=== PATIENT | female | born 1975 | race Caucasian/White ===

== ENCOUNTER 2016-10-07 12:21 | Inpatient (IN) | payer OTHER ==
[~2016-10-07] VITALS: Ht 172.7 cm; Wt 57.8 kg
[2016-10-07] VITALS (440 sets, daily range): BP systolic 108–131; BP diastolic 58–78; PULSE 83–114; TEMP 98.9–99.8; O2SAT 93–100
[2016-10-07 12:59] LABS: ARTERIAL BLD GAS O2 SATURATION 96.7 % (92-100); ARTERIAL BLD GAS TCO2 CT 6.2; ARTERIAL BLOOD GAS BASE EXCESS -20.8 (-2-2); ARTERIAL BLOOD GAS HCO3 5.7 meq/L (22-26); OXYHEMOGLOBIN 95.7 %
[2016-10-07 13:01] LABS: ALLEN TEST YES; ALLENS TEST RESULT PASS; ARTERIAL BLOOD GAS PHT 7.15 C (7.35-7.45); ARTERIAL BLOOD GAS pH 7.15 (7.35-7.45); ATS? YES
[2016-10-07 13:40] LABS: CALCIUM 7.7 mg/dL (8.4-10.2); CREATININE, serum 0.68 mg/dL (0.52-1.25); POTASSIUM 4.3 mmol/L (3.4-5.0)
[2016-10-07] MEDS ORDERED: MASON NATURAL2000 IU PO (13:50)
[2016-10-07] MEDS ORDERED: SINGULAIR 110 MG/TAB PO (13:51)
[2016-10-07 13:53] LABS: PHOSPHOROUS 1.9 mg/dL (2.5-4.5)
[2016-10-07] MEDS ORDERED: ASPIRIN 81M81 MG/TA2 PO (13:53)
[2016-10-07] MEDS ORDERED: ZYRTEC 10MG10 MG PO (13:53)
[2016-10-07] MEDS ORDERED: NOVLOG SQ (13:54)
[2016-10-07] MEDS ORDERED: VITAMIN D31000 I1 PO (13:55)
[2016-10-07 20:27] LABS: CREATININE, serum 0.56 mg/dL (0.52-1.25); POTASSIUM 3.7 mmol/L (3.4-5.0)
[2016-10-08] VITALS (421 sets, daily range): BP systolic 96–127; BP diastolic 50–72; PULSE 81–103; TEMP 97.9–98.5; O2SAT 96–100
[2016-10-08 06:00] LABS: BASO # 0.1 (0.0-0.2); BASO % 0.6 % (0.0-2.0); EOS # 0.1 (0.0-0.7); EOS % 0.3 % (0-4.0); GRAN # 18.5 (1.4-6.5); GRAN % 84.8 % (42.2-75.2); HEMATOCRIT 38.3 % (37.0-47.0); HEMOGLOBIN 13.9 g/dl (12.5-16.0); LYMPH # 1.6 (1.2-3.4); LYMPH % 7.3 % (20.0-51.0); MEAN CELL VOLUME 93 fl (80.0-100.0); MEAN CORPUSCULAR HEMOGLOBIN 34 pg (27.0-31.0); MEAN CORPUSCULAR HGB CONC 36 g/dl (33.0-37.0); MEAN PLATELET VOLUME 10.2 fl (7.4-10.4); MONO # 1.2 (0.1-0.6); MONO % 5.6 % (1.7-9.3); PLATELET COUNT 181 K/mm3 (130-400); RED BLOOD COUNT 4.14 M/mm3 (4.10-5.30); REDCELL DISTRIBUTION WIDTH-CV 13.1 % (11.5-14.5)
[2016-10-08 06:03] LABS: WHITE BLOOD COUNT 21.8 K/mm3 (4.8-10.8)
[2016-10-08 06:08] LABS: CALCIUM 7.5 mg/dL (8.4-10.2); CREATININE, serum 0.48 mg/dL (0.52-1.25); POTASSIUM 3.3 mmol/L (3.4-5.0)
[2016-10-08 14:14] LABS: CALCIUM 7.2 mg/dL (8.4-10.2); CREATININE, serum 0.47 mg/dL (0.52-1.25); POTASSIUM 3.7 mmol/L (3.4-5.0)
[2016-10-09 00:01] VITALS: BP 108/57; PULSE 65; TEMP 98.2
[2016-10-09 03:03] VITALS: BP 106/62; PULSE 74; TEMP 97.8
[2016-10-09 06:54] LABS: BASO % 0.7 % (0.0-2.0); EOS # 0.1 (0.0-0.7); EOS % 1.9 % (0-4.0); GRAN # 4.1 (1.4-6.5); GRAN % 70.8 % (42.2-75.2); HEMOGLOBIN 13.2 g/dl (12.5-16.0); LYMPH # 1.1 (1.2-3.4); LYMPH % 18.3 % (20.0-51.0); MEAN CELL VOLUME 92 fl (80.0-100.0); MEAN CORPUSCULAR HEMOGLOBIN 33 pg (27.0-31.0); MEAN CORPUSCULAR HGB CONC 36 g/dl (33.0-37.0); MEAN PLATELET VOLUME 10.1 fl (7.4-10.4); MONO # 0.4 (0.1-0.6); MONO % 7.6 % (1.7-9.3); PLATELET COUNT 132 K/mm3 (130-400); RED BLOOD COUNT 3.96 M/mm3 (4.10-5.30); REDCELL DISTRIBUTION WIDTH-CV 13.1 % (11.5-14.5); WHITE BLOOD COUNT 5.8 K/mm3 (4.8-10.8)
[2016-10-09 06:55] LABS: HEMATOCRIT 36.6 % (37.0-47.0)
[2016-10-09 07:07] LABS: CALCIUM 7.6 mg/dL (8.4-10.2); CREATININE, serum 0.39 mg/dL (0.52-1.25); MAGNESIUM 1.9 mg/dL (1.6-2.3); POTASSIUM 3.5 mmol/L (3.4-5.0)
[2016-10-09 07:15] VITALS: BP 124/66; PULSE 73; TEMP 98.2
[2016-10-09] MEDS ORDERED: LANTUS SOLOS100 U/ML SQ (10:54)
[2016-10-09] MEDS ORDERED: THE MEDICINE SH1 DE3 MC (10:57)
[2016-10-09] MEDS ORDERED: NOVOLOG FLEX100 U/ML SQ (10:57)
[2016-10-09] MEDS ORDERED: GLUCOSE TEST ST1 DEV MC (10:58)
== END 2016-10-09 13:49 | disposition home or self-care (01) | DRG 919 ==
LOC: ICU 12:21 → MEDICAL 10-08 16:37
PROVIDERS: Internal Medicine
DX: T85.694A Other mechanical complication of insulin pump, initial encounter (principal); E10.10 Type 1 diabetes mellitus with ketoacidosis without coma; F17.210 Nicotine dependence, cigarettes, uncomplicated; B37.3 Candidiasis of vulva and vagina; E87.6 Hypokalemia
CPT/HCPCS: 99223-AI; 99232-AI; 99239; J0696; J1644; J1815; J1956; J3480; J7030